=== PATIENT | male | born 1940 | race Caucasian/White ===

== ENCOUNTER 2018-02-03 08:49 | Day surgery (SDC) | payer MEDICARE ==
[~2018-02-03] VITALS: Ht 175.3 cm; Wt 77.5 kg
[~2018-02-03 08:49] MED LIST: ASPI81CH PO; CALCAVITD PO; CILO50 PO; CLON.2TP TOP; CYAN1000 PO; Catapres-Tts 11 EACH TD; ERGO50000 PO; FARXIGA5 MG PO; FISH1000 PO; GEMF600 PO; GLIM2 PO; Hygroton50 MG PO; LOSA50 PO; MAGOXI400; METRIBP PO; MULVITMIND PO; POTA10T PO; ROSU10TA PO; TAMS.4ER; UBID10; VERA120ERB PO; VERA180ER PO
== END 2018-02-03 11:20 | disposition home or self-care (01) ==
LOC: ORSCSDS 08:49
PROVIDERS: Internal Medicine Gastroenterology
PROC: 0DBN8ZX Excision of Sigmoid Colon, Via Natural or Artificial Opening Endoscopic, Diagnostic (ICD-10-PCS; principal; 2018-02-03 10:45)
PROC: 0DBM8ZX Excision of Descending Colon, Via Natural or Artificial Opening Endoscopic, Diagnostic (ICD-10-PCS; principal; 2018-02-03 10:45)
DX: R19.7 Diarrhea, unspecified (principal); D12.4 Benign neoplasm of descending colon; D12.5 Benign neoplasm of sigmoid colon; K57.30 Diverticulosis of large intestine without perforation or abscess without bleeding; I10 Essential (primary) hypertension; E11.9 Type 2 diabetes mellitus without complications; B19.20 Unspecified viral hepatitis C without hepatic coma; E78.5 Hyperlipidemia, unspecified; Z86.73 Personal history of transient ischemic attack (TIA), and cerebral infarction without residual deficits; Z79.899 Other long term (current) drug therapy
CPT/HCPCS: 82947; 88305; J7120

== ENCOUNTER 2019-06-10 15:55 | Emergency (ER) | payer MEDICARE ==
[~2019-06-10] VITALS: Ht 175.3 cm; Wt 77.1 kg
== END 2019-06-10 17:20 | disposition home or self-care (01) ==
LOC: ER 15:55
DX: T83.091A Other mechanical complication of indwelling urethral catheter, initial encounter (principal); I10 Essential (primary) hypertension; E78.5 Hyperlipidemia, unspecified; E11.9 Type 2 diabetes mellitus without complications; Z88.1 Allergy status to other antibiotic agents; Z91.011 Allergy to milk products; Z88.8 Allergy status to other drugs, medicaments and biological substances; Z79.899 Other long term (current) drug therapy; Z79.84 Long term (current) use of oral hypoglycemic drugs
CPT/HCPCS: 51700; 51798; 99283-25

== ENCOUNTER → 2019-07-19 | Outpatient (CLI) | payer MEDICARE ==
[2019-07-19 10:24] LABS: Source, Urine Clean Catch
[2019-07-19 13:22] LABS: Bilirubin, Urine Neg (Neg); Blood, Urine 5+ (Neg); Glucose Qualitative, Urine 2+ (Neg); Ketones, Urine Neg (Neg); Leukocyte Esterase, Urine 3+ (Neg); Nitrite, Urine Pos (Neg); Protein, Urine 4+ (Neg); Specific Gravity, Urine 1.025 (1.003-1.022); Urobilinogen, Urine NORM (Normal)
[2019-07-19 13:32] LABS: Appearance, Urine Cloudy (Clear); Bacteria Mod /hpf; Color, Urine Yellow (P-Yellow); Red Blood Cells, Urine TNTC /hpf (0-2); Squamous Epithelial Cells Not Seen /hpf (Few); White Blood Cells, Urine TNTC /hpf (0-5)
[2019-07-19 13:33] LABS: Mucus Light (0-Heavy)
== END | disposition home or self-care (01) ==
LOC: LAB SHORT 10:20 → LAB 10:20
PROVIDERS: Urology
DX: N39.0 Urinary tract infection, site not specified (principal)
CPT/HCPCS: 81001

== ENCOUNTER → 2020-07-02 | Outpatient (CLI) | payer MEDICARE ==
[2020-07-02 20:19] LABS: Creatinine, Urine Random 98.2 mg/dL (27.00-270.00)
[2020-07-02 20:22] LABS: Microalb/Creat Ratio UR, Rand 22.709 mg/g (0.000-30.000); Microalbumin, Random Urine 22.3 mg/L (0.000-20.000)
== END | disposition home or self-care (01) ==
LOC: LAB 12:50 → LAB SHORT 12:50
PROVIDERS: Family Medicine
DX: E11.59 Type 2 diabetes mellitus with other circulatory complications (principal); D64.9 Anemia, unspecified
CPT/HCPCS: 82043; 82570

== ENCOUNTER → 2020-10-25 | Outpatient (CLI) | payer MEDICARE ==
[~2020-10-25] MED LIST changes: +AMIL5 PO; +AMLO5 PO; +CILO100 PO; +Vitamin D2000 UNIT PO
== END ==
LOC: PLD 15:49 → LAB SHORT 15:49
DX: D48.5 Neoplasm of uncertain behavior of skin (principal)
CPT/HCPCS: 88341; 88342

== ENCOUNTER → 2020-11-30 | Outpatient (CLI) | payer MEDICARE ==
[2020-11-30 14:35] LABS: Albumin, Blood 3.4 g/dL (3.4-5.0); Anion Gap 8 mmol/L (6-16); Blood Urea Nitrogen 36 mg/dL (8-24); Bun/Creatinine Ratio 18.6 (12.0-20.0); CO2, Blood 17 mmol/L (21-32); Calcium, Blood 8.7 mg/dL (8.5-10.1); Chloride, Blood 117 mmol/L (98-108); Creatinine, Blood 1.94 mg/dL (0.60-1.20); Glomerular Filtration Rate 36 (60-); Glucose, Blood 157 mg/dL (70-99); Magnesium, Blood 1.8 mg/dL (1.6-2.4); Phosphorus, Blood 3.6 mg/dL (2.5-4.9); Potassium, Blood 4.6 mmol/L (3.5-5.5); Sodium, Blood 142 mmol/L (136-145)
== END | disposition home or self-care (01) ==
LOC: LAB 10:26 → LAB SHORT 10:26
PROVIDERS: Internal Medicine
DX: N18.32 Chronic kidney disease, stage 3b (principal)
CPT/HCPCS: 36415; 80069; 83735

== ENCOUNTER 2021-03-25 07:09 | Day surgery (SDC) | payer MEDICARE ==
[~2021-03-25] VITALS: Ht 175.3 cm; Wt 68.0 kg
[~2021-03-25 07:09] MED LIST changes: +Actos15 MG PO; +CARV3.125 PO; +MAGNESIUM OXID500 MG PO
[2021-03-25] MEDS ORDERED: XARELTO20 MG (13:16)
[2021-03-25] MEDS ORDERED: CLOP75 (13:16)
--- NOTE | 2021-03-25 15:13 | NUR ---
PT UP TO RESTROOM, AMBULATES WITH SLOW GAIT, USING FWW FOR SUPPORT. RIGHT GROIN SITE APPEARS TO BE SOFT NON TENDER WITH NO ACTIVE BLEEDING, OOZING, OR PAIN NOTED. GETS DRESSSED WITH NO NEEDED ASSISTANCE.
--- NOTE | 2021-03-25 16:03 | NUR ---
PT VERBALIZED UNDERSTANDING OF D/C INSTRUCTIONS. PAPERWORK PROVIDED IN FOLDER. IV REMOVED WITH CATH INTACT, PRESSURE DRESSING APPLIED. RIGHT GROIN SITE SOFT NON TENDER WITH NO ACTIVE BLEEDING, OOZING, OR PAIN NOTED. ENCOURAGED TO GET TO [facility] FOR NEW PRESCRIPTIONS AND FOLLOW UP WITH PROVIDER SCHEDULED. VERBALIZED UNDERSTANGING. TRANSPORTATION ARRANGED THROUGH [facility]. TAKEN OUT BY W/Grace SALINAS.
== END 2021-03-25 16:00 | disposition home or self-care (01) ==
LOC: MHTC 07:09 → EDSTATUS 07:12 → MHTC 07:29
DX: E11.51 Type 2 diabetes mellitus with diabetic peripheral angiopathy without gangrene (principal); I70.222 Atherosclerosis of native arteries of extremities with rest pain, left leg; I12.9 Hypertensive chronic kidney disease with stage 1 through stage 4 chronic kidney disease, or unspecified chronic kidney disease; E11.22 Type 2 diabetes mellitus with diabetic chronic kidney disease; N18.9 Chronic kidney disease, unspecified; I25.10 Atherosclerotic heart disease of native coronary artery without angina pectoris; E78.5 Hyperlipidemia, unspecified; Z87.891 Personal history of nicotine dependence; Z95.828 Presence of other vascular implants and grafts; Z88.8 Allergy status to other drugs, medicaments and biological substances; Z91.011 Allergy to milk products; Z79.84 Long term (current) use of oral hypoglycemic drugs
CPT/HCPCS: 76937; 85347; 99152; 99153; C1724; C1725; C1760; C1769; C1887; C1894; J1644; J2250; J3010; J7030; Q9967

== ENCOUNTER 2021-04-20 12:59 | Inpatient (IN) | payer MEDICARE ==
[~2021-04-20] VITALS: Ht 175.3 cm; Wt 71.1 kg
[~2021-04-20 12:59] MED LIST changes: +CLOP75; +XARELTO20 MG
[2021-04-20 16:12] LABS: BASOPHILS ABSOLUTE AUTO 0.04 K/mm3 (0.00-0.23); BASOPHILS PERCENT AUTO 1 % (0-2); EOSINOPHILS ABSOLUTE AUTO 0.05 K/mm3 (0.00-0.68); EOSINOPHILS PERCENT AUTO 1 % (0-6); Hematocrit 31.7 % (37.0-53.0); Hemoglobin 10.1 g/dL (13.5-17.5); IMMATURE GRAN ABSOLUTE AUTO 0.19 K/mm3 (0.00-0.10); IMMATURE GRAN PERCENT AUTO 3 % (0-1); LYMPHOCYTES PERCENT AUTO 23 % (21-46); MONOCYTES PERCENT AUTO 11 % (4-13); Mean Corpuscular HGB 30.2 pg (26.0-34.0); Mean Corpuscular HGB Conc 31.9 g/dL (31.5-36.5); Mean Corpuscular Volume 95 fL (80-100); Mean Platelet Volume 10.4 fL (9.1-12.4); NEUTROPHILS PERCENT AUTO 62 % (41-73); Platelet Count 229 K/mm3 (150-400); RDW Coefficient Variation 14.9 % (11.7-14.2); RDW Standard Deviation 50.6 fL (35.1-46.3); Red Blood Cell Count 3.34 M/mm3 (4.30-5.90); White Blood Cell Count 7.28 K/mm3 (4.00-11.30)
[2021-04-20 16:29] LABS: Albumin, Blood 2.6 g/dL (3.4-5.0); Albumin/Globulin Ratio 0.6 (0.8-1.8); Bilirubin, Total 0.5 mg/dL (0.1-1.0); Bun/Creatinine Ratio 12.6 (12.0-20.0); Calcium, Blood 8.6 mg/dL (8.5-10.1); Creatinine, Blood 1.9 mg/dL (0.60-1.20); Globulin, Blood 4.1 g/dL (2.2-4.0); Potassium, Blood 3.2 mmol/L (3.5-5.5); Total Protein, Blood 6.7 g/dL (6.4-8.2)
[2021-04-20 16:49] LABS: International Normalized Ratio 1.1; Prothrombin Time Results 11.8 Sec (9.7-11.5)
[2021-04-20] MEDS ORDERED: AMIL5 PO (17:29)
[2021-04-20] MEDS ORDERED: AMLO10 PO (17:30)
[2021-04-20] MEDS ORDERED: ASPI81CH PO (17:31)
[2021-04-20] MEDS ORDERED: CARVEDILOL3.125 MG PO (17:32)
[2021-04-20] MEDS ORDERED: CHOLESTYRAMI239.4 G1 PO (17:33)
[2021-04-20] MEDS ORDERED: CILOSTAZOL PO (17:34)
[2021-04-20] MEDS ORDERED: Amaryl2 MG PO (17:35)
[2021-04-20] MEDS ORDERED: LOSARTAN POTAS100 M1 PO (17:37)
[2021-04-20] MEDS ORDERED: MAGNESIUM OXID400 M1 PO (17:38)
[2021-04-20] MEDS ORDERED: ACTOS15 MG PO (17:39)
[2021-04-20] MEDS ORDERED: KLOR-CON 1010 ME1 PO (17:40)
[2021-04-20] MEDS ORDERED: LYRICA200 M1 PO (17:41)
[2021-04-20] MEDS ORDERED: ROSU5 PO (17:42)
[2021-04-20] MEDS ORDERED: FLOMAX0.4 MG PO (17:43)
[2021-04-21 01:05] LABS: Bun/Creatinine Ratio 12.6 (12.0-20.0); Calcium, Blood 7.9 mg/dL (8.5-10.1); Creatinine, Blood 1.74 mg/dL (0.60-1.20); Potassium, Blood 3.4 mmol/L (3.5-5.5)
--- NOTE | 2021-04-21 05:12 | NUR ---
PATIENT SUMMARY PATIENT IS ALERT AND ORIENTED X4. VS STABLE FOR PATIENT ON RA. NO COMPLAINTS OF SHORTNESS OF BREATH OR CHEST PAIN. DECREASED HEPARIN MY SHIFT ACCORDING TO PHARMACY. NO SWELLING NOTED MY SHIFT. LEFT FOOT REAMINS DISCOLORED WITH 1+ PULSE. MEDICATIONS GIVEN ORDERED AND CARES COMPLETED ORDRED ACCORDING TO NURSING JUDGEMENT. ALL UNFINNISHED CARES ENDORSED TO ONCOMING NURSE.
--- NOTE | 2021-04-21 10:00 | NUR ---
HEAD DRESSING CHANGED. SHUR CLENS TO AREA. OIL EMULSION THEN NONADHERING. PICTURE TAKEN WITH PATIENT CONSENT. PATIENT STS HAS CHEM ONCE A WEEK AND HAD RADIATION. STS IT LOOKS BETTER. LEFT ARM SKIN DARKENED WITH PATIENT STS AREA NUMB POST CHEM LEAKAGE.
--- NOTE | 2021-04-21 14:05 | NUR ---
PATIENT AWARE INTERVENTIONALIST, , WILL BE DOING PROCEDURE TOMORROW. NPO AFTER MIDNITE EXCEPT MEDS. UNSURE WHAT TIME.
--- NOTE | 2021-04-21 18:04 | NUR ---
ALERT. ORIENTED. COOPERATIVE. PLEASANT. UNLABORED RESPIRATIONS.FORGETFUL.DRESSING TO LEFT SIDE OF HEAD CHANGED. HEPARIN INFUSING WITH NO CHANGES IN RATE THIS SHIFT. TELE ON. HAD 2 EPISODES OF HOUSE COLORED DIARRHEA WITH PATIENT STAING HE "HAS HAD FOR YEARS DUE TO PANCREATIC PROBLEMS". RT GROIN DRESSING LEFT IN PLACE. NO OBVIOUS BLEEDING OR SWEELING. BRUISING TO AREA. WCTM
[2021-04-22 05:06] LABS: Hematocrit 33.1 % (37.0-53.0); Hemoglobin 10.8 g/dL (13.5-17.5); Mean Corpuscular HGB 30.4 pg (26.0-34.0); Mean Corpuscular HGB Conc 32.6 g/dL (31.5-36.5); Mean Corpuscular Volume 93 fL (80-100); Mean Platelet Volume 10.5 fL (9.1-12.4); Platelet Count 233 K/mm3 (150-400); RDW Coefficient Variation 15.3 % (11.7-14.2); RDW Standard Deviation 51.7 fL (35.1-46.3); Red Blood Cell Count 3.55 M/mm3 (4.30-5.90); White Blood Cell Count 8.25 K/mm3 (4.00-11.30)
--- NOTE | 2021-04-22 06:04 | NUR ---
CAPITAL PROJECT ENGINEER SUMMARY ADMITTED FOR ISCHEMIC PAIN OF THE LEFT FOOT. PT IS FULL CODE. PT IS PLANNED TO HAVE STENT PLACED IN THE AM. NPO AFTER MIDNIGHT. PT WITH SOME EPISODES OF DIARRHEA. DRESSING TO HEAD PARTIALLY REMOVED AND AREA CLEANED WITHOUT REMOVAL OF PETROLEUM DRESSING - WET TO DRY PLACED OVER DRESSING. PT RESTING AT THIS TIME. NO OTHER CONCERNS THIS SHIFT.
[2021-04-22 06:22] LABS: Bun/Creatinine Ratio 12.3 (12.0-20.0); Calcium, Blood 8.6 mg/dL (8.5-10.1); Creatinine, Blood 1.79 mg/dL (0.60-1.20); Potassium, Blood 3.7 mmol/L (3.5-5.5)
[2021-04-22 11:44] LABS: SARS-Cov-2 (COVID-19) PCR, MMC NEGATIVE (NEGATIVE)
--- NOTE | 2021-04-22 11:58 | NUR ---
TO [facility]. [id number]
--- NOTE | 2021-04-22 14:46 | NUR ---
JAY CALLED FROM [facility]. RESTARTING HEPARIN. RECOMMENDED HE CONTACT [facility] FOR CURRENT INST. AND RATES. CALLED REPORT TO ALMA JNI. PT GOING TO RM 233
--- NOTE | 2021-04-22 18:00 | NUR ---
END OF SHIFT SUMMARY: PATIENT IS A/O X3 FOREGETFUL AT TIMES. HEPARIN RUNNING, VERY WEAK PULSE OF THE LEFT FOOT, SOME DISCOLORATION THAT EXTENDS TO THE MID LEFT CALF. PATIENT WILL BE NPO AFTER BREAKFAST. DR. DESHPANDE TO REACCESS IN THE MORNING. AC HS DENIES CHEST PAIN, PVC'S AND PAC'S PER TELEMETRY.
[2021-04-23 04:30] LABS: Bun/Creatinine Ratio 14.1 (12.0-20.0); Calcium, Blood 8.5 mg/dL (8.5-10.1); Creatinine, Blood 2.13 mg/dL (0.60-1.20); Potassium, Blood 4.2 mmol/L (3.5-5.5)
--- NOTE | 2021-04-23 05:58 | NUR ---
SHIFT SUMMARY PATIENT IS RESTING COMFORTABLY IN BED. BED IS IN LOW POSTION. CALL LIGHT IS IN REACH. VITALS HAVE BEEN STABLE ALL NIGHT. NO ACTUE CHANGES OVER NIGHT. THE PATIENT IS STILL ON THE HEPARIN DRIP WITH NO CHANGES TO THE RATE 16 UNITS/KG/HR AT 20.2ML/HR. LLE PULSES REASSESSED AND MARKED. NO COMPLAINTS OF PAIN. WIIL CONTINUE TO MONITOR. REPORT WILL BE GIVEN TO DAY SHIFT RN.
--- NOTE | 2021-04-23 08:43 | NUR ---
ASSUMPTION OF CARE Pt is awake and oriented x 4. He is a little groggy as he just woke up. AM care has been done and his dentures were brushed and put back in. Heparin is running as ordered. is at the bedside and asked that his morning BP meds be held due to his hypotension this morning. Pt is eating breakfast and then he will be NPO for his revas this afternoon with DR Bunch. Pt has his call light in reach and able to make his needs known.
--- NOTE | 2021-04-23 13:08 | NUR ---
SUMMARY OF CARE Pt is a/o x 3 today but has been forgetful and fatigued since after breakfast. He has been NPO since after breakfast becuase Dr Bunch had planned another revas but according to the PA his renal function is not well enough for that today. Home meds were reviewed with the DR this morning and she made changes reflected on the EMAR. Pt's sister was updated this morning. Pt was able to transfer to the [facility] for toileting. He is able to make his needs known and calls for help when needed.
--- NOTE | 2021-04-23 14:07 | NUR ---
Met pt lying in bed resting, pt. is fineoffered prayers and spiritual support
--- NOTE | 2021-04-23 15:00 | NUR ---
ASSUMED CARE PT ALERT AND ORIENTED. PT IS LETHARGIC THIS AFTERNOON, BUT AWAKENS AND ANSWERS QUESTIONS WHEN RN IN THE ROOM. O2 SATS REMAIN ABOVE 90% ON RA. BP STABLE. HR HAS BEEN NSR WITH PVC 70'S. PT DENIES ANY PAIN. HEP GTT INFUSING PER ORDERS AT A RATE OF 16U/KG/HR. PT'S SISTER CALLED AND UPDATED REQUESTED. WILL CONTINUE TO MONITOR CLOSELY.
--- NOTE | 2021-04-23 17:10 | NUR ---
UPDATE PT AWAKENS AND SLURRED SPEECH NOTED. PT PROVIDED ORAL CARE TO SEE IF THAT AND DENTURES TO SEE IF SPEECH IMPROVES. SPEECH IS STILL SLURRED AND PT STATES HE IS HAVING DIFFICULTY "GETTING MY WORDS OUT". PUPILS EQUAL AND REACTIVE. HIGH PRESSURE CLEANER EQUAL AND STRONG. NO UNILATERAL DEFICITS NOTED. DR. HERRERA CALLED AND NOTIFED. PLAN FOR A STAT HEAD CT. WILL CONTINUE TO MONITOR CLOSELY
--- NOTE | 2021-04-23 23:00 | NUR ---
THE PATIENT'S PEDAL PULSES ARE NOW ABSENT WITH A DOPPLER AND UNABLE TO PALPATE. WAS ABLE TO FIND THE TIBIAL PULSE WITH JOSE ROSARIO USING THE DOPPLER UNABLE TO PALPATE THE PULSE. PATIENT IS CURRENTLY ON HEPARIN 16 UNITS/KG/HR 20.2 ML/HR. PLANNED REVASCULARIZATION TODAY IF RENAL FUNCTION HAS IMPROVED. WILL CONTINUE TO MONITOR.
[2021-04-24 05:06] LABS: Hematocrit 28.2 % (37.0-53.0); Hemoglobin 9.2 g/dL (13.5-17.5); Mean Platelet Volume 10.7 fL (9.1-12.4); Platelet Count 236 K/mm3 (150-400)
--- NOTE | 2021-04-24 05:51 | NUR ---
SHIFT SUMMARY PATIENT IS RESTING COMFORTABLY IN BED. BED IS IN LOW POSITION. CALL LIGHT IS IN REACH. VITALS HAVE BEEN STABLE. PATIENT IS STILL CONCERNED ABOUT THE CHANGES IN HIS SPEECH. PATIENT WAS ADVICED TO BE RELAX WHEN TALKING AND HAS FELT BETTER WHEN COMMUNICATING WITH RN. L TIBIAL PULSE IS +1 WITH THE DOPPLER AND MARKED, RN WAS UNABLE TO PALPATE THE PULSES. THE PEDAL PULSE IS ABSENT UPON PALPATION AND DOPPLER WILL INFORM ONCOMING RN OF THE CHANGES. PATIENT IS CURRENTLY ON HEPARIN AT 16 UNIT/KG/HR (20.2 ML/HR). THEY PLAN ON GOING IN TO DO THE REVASCULARIZATION SURGERY TODAY IF HIS RENAL FUNCTION IS GOOD. NO LAB TO ASSESS RENAL FUNCTION DR DAVIS WAS INFOMRED. NEW ORDERS WERE PUT IN FOR A CMP. WILL CONTINUE TO MONITOR. REPORT WILL BE GIVEN TO ONCOMING RN.
--- NOTE | 2021-04-24 06:37 | NUR ---
NO ORDERS WERE PUT IN TO CHECK THE RENAL FUNCTION OF THE PATIENT IN ANTICIPATION FOR REVASCULARIZATION SURGERY TO DAY. DR DAVIS WAS INFOMRED AND NEW ORDERS WERE PUT IN FOR CMP.
--- NOTE | 2021-04-24 07:15 | NUR ---
CARE ASSUMPTION PATIENT A/0X4. VSS. TELE. PATIENT STATES SPEECH CHANGED YESTERDAY. IT IS SLOW AND SLURRED AT TIMES. PATIENT REPORTS A DECREASE IN STRENGTH AND MOBLITYIN RIGHT HAND. PATIENT HAD HEAD CT YESTERDAY AND IT WAS NEGATIVE. CALL LIGHT WITHIN REACH WILL CONTINUE TO MONITOR AND PROVIDE CARE.
[2021-04-24 07:22] LABS: Albumin, Blood 1.9 g/dL (3.4-5.0); Albumin/Globulin Ratio 0.5 (0.8-1.8); Bilirubin, Total 0.4 mg/dL (0.1-1.0); Bun/Creatinine Ratio 13.4 (12.0-20.0); Creatinine, Blood 2.61 mg/dL (0.60-1.20); Potassium, Blood 4.2 mmol/L (3.5-5.5); Total Protein, Blood 5.9 g/dL (6.4-8.2)
--- NOTE | 2021-04-24 09:26 | NUR ---
UPDATE MD HERRERA INTO SEE PATIENT AND NOFITED OF PATIENT NEW NEURO CHANGES; SLOW SLURRED SPEECH, RIGHT ARM WEAKNESS. PATIENT DOES NOT HAVE A FACIAL DROOP. MD BRITTON A MRI. WILL CONTINUE TO MONITOR AND PROVIDE CARE.
--- NOTE | 2021-04-24 10:50 | NUR ---
UPDATE UPON REASSESSMENT AFTER PATIENT MRI. PATIENT HAD A RIGHT SIDED FACIAL DROOP WHEN SMILING. WILL CONTINUE TO MONITOR AND AWAIT RESULTS FOR MRI AND NOTIFY .
--- NOTE | 2021-04-24 13:01 | NUR ---
SPOKE TO MD SPOKE TO MD HERRERA ABOUT PATIENT MRI RESULTS SHOW THAT PATIENT HAD AN ISCHEMIC STROKE OF THE LEFT ROSINA . Q4 NEURO CHECKS IN PLACE. KEEP BLOOD GLUCOSE LEVELS BETWEEN 140-180, BP LESS THEN 220/120, HEAD OF BED FLAT, AN TONGUE AND GROOVE MACHINE FEEDER EVAL, AND NPO. WILL CONTINUE TO MONITOR AND PROVIDE CARE. PATIENT IS IN LOWEST POSITION WITH HEAD OF BED FLAT. CALL LIGHT WITHIN REACH.
--- NOTE | 2021-04-24 14:25 | NUR ---
PT TRANSFERED TO 356 VIA WHEEL CHAIR, ALL BELONGINGS SENT WITH PT.
--- NOTE | 2021-04-24 17:07 | NUR ---
SHIFT SUMMARY PATIENT A/OX4. VSS. TELE SR @66. SPO2 >90% ON RA. PATIENT HAS REDDNESS TO HIS BOTTOM/COCCYX MEPILEX IS IN PLACE. PATIENT HAS A RIGHT FEMORAL SITE FROM 04/20 THAT HAS OLD SCANT BLOOD, NO HEMATOMA. SPEECH EVAL DONE AND PATIENT CAN HAVE SOFT BITE SIZED REG DIET. PATIENT HAS STRONG PERIPHERAL PULSES. PATIENT HAS PULSE FOUND BY DOOPLER ON LEFT TIBAL, AND IT IS WEAK. WEAK PEDIS PULSE ON RIGHT FOOT. COOL EXTREMITIES TO TOUCH. PATIENT HAS RIGHT SIDED WEAKNESS AND RIGHT FACIAL DROOP. PATIENT REPORTS NO CHEST PAIN, PAIN, OR SOB. PLAN IS TO MAINTAIN STABLE VSS, NOTIFY PROVIDED IF BP IS ABOVE 220/120, OR SBP DROPS BELOW 120. CALL LIGHT IS WITHIN REACH AND BED IN LOWEST POSITION. WILL CONTINUE TO MONITOR AND PROVIDE CARE UNTIL HAND OFF WITH NEXT SHIFT.
[2021-04-25 06:32] LABS: BASOPHILS ABSOLUTE AUTO 0.03 K/mm3 (0.00-0.23); BASOPHILS PERCENT AUTO 0 % (0-2); EOSINOPHILS ABSOLUTE AUTO 0.14 K/mm3 (0.00-0.68); EOSINOPHILS PERCENT AUTO 1 % (0-6); Hematocrit 32.3 % (37.0-53.0); Hemoglobin 10.2 g/dL (13.5-17.5); IMMATURE GRAN ABSOLUTE AUTO 0.24 K/mm3 (0.00-0.10); IMMATURE GRAN PERCENT AUTO 2 % (0-1); LYMPHOCYTES ABSOLUTE AUTO 1.14 K/mm3 (0.84-5.20); LYMPHOCYTES PERCENT AUTO 12 % (21-46); MONOCYTES ABSOLUTE AUTO 1.01 K/mm3 (0.16-1.47); MONOCYTES PERCENT AUTO 10 % (4-13); Mean Corpuscular HGB 30.5 pg (26.0-34.0); Mean Corpuscular HGB Conc 31.6 g/dL (31.5-36.5); Mean Corpuscular Volume 97 fL (80-100); Mean Platelet Volume 10.8 fL (9.1-12.4); NEUTROPHILS ABSOLUTE AUTO 7.37 K/mm3 (1.96-9.15); NEUTROPHILS PERCENT AUTO 74 % (41-73); Platelet Count 210 K/mm3 (150-400); RDW Coefficient Variation 15.8 % (11.7-14.2); Red Blood Cell Count 3.34 M/mm3 (4.30-5.90); White Blood Cell Count 9.93 K/mm3 (4.00-11.30)
--- NOTE | 2021-04-25 06:45 | NUR ---
SHIFT SUMMARY NO ACUTE CHANGES THIS SHIFT. PT A&OX4. SLURRED SPEECH W/ R SIDE UPPER DEFICITS AND R FACIAL DROOP. SP02>94% ON RA. TELEMETRY READS NSR W/ PVCS, HR 70'S. VSS. PT INCONTINENT, CHANGED X3 THIS SHIFT. ATTENDS C/D/I. HEPARIN INFUSING PER EMAR. PT WENT TO CT THIS AM. CALL LIGHT IN REACH. WILL GIVE REPORT TO ONCOMING NURSE.
[2021-04-25 06:54] LABS: Albumin/Globulin Ratio 0.5 (0.8-1.8); Bilirubin, Total 0.4 mg/dL (0.1-1.0); Calcium, Blood 9.4 mg/dL (8.5-10.1); Creatinine, Blood 2.86 mg/dL (0.60-1.20); Globulin, Blood 4.4 g/dL (2.2-4.0); Potassium, Blood 4.5 mmol/L (3.5-5.5); Total Protein, Blood 6.4 g/dL (6.4-8.2)
--- NOTE | 2021-04-25 08:48 | NUR ---
CARE ASSUMPTION PATIENT A/O X3. PATIENT WAS MIDLY CONFUSED AND ASKED WHAT HAPPENED. THIS RN EXPLAINED WHAT WAS GOING ON AND THE GAME PLAN. VSS. SPO2 >90% ON RA. TELE SR. PATIENT REPORTS NO CHEST PAIN, PAIN, OR SOB. RIGHT FACIAL DROOP. RIGHT SIDED WEAKNESS. NEURO WAS INTACT. CALL LIGHT WITHIN REACH. PATIENT EATING BREAKFAST. WILL CONTINUE TO MONITOR AND PROVIDE CARE.
--- NOTE | 2021-04-25 17:32 | NUR ---
SHIFT SUMMARY PATIENT A/OX4. VSS. TELE SR @75. RA SPO2 >90%. PATIENT DENIES CHEST PAIN, PAIN, OR SOB. PATIENT WORKED WITH OCCUPATIONAL THERAPY AND PHYSICAL THERAPY TODAY. PATIENT WAS A 2 PERSON ASSIST FOR TRANSFER FROM BED TO CHAIR. PATIENT SAT IN CHAIR FOR ABOUT 2 HOURS TODAY AND THEN RETURNED TO BED. NO ACUTE CHANGES. CALL LIGHT WITHIN REACH AND BED IN LOWEST POSITION. WILL CONTINUE TO MONITOR AND PROVIDE CARE UNTIL HAND OFF WITH NEXT SHIFT.
--- NOTE | 2021-04-25 18:11 | NUR ---
04/25/21: Per chart review, pt. not yet appropriate for discharge. Reviewed PT/OT eval with recommendation for SNF. Pt. lives in multi-level home with stairs that will likely be a challenge at this point. Prior to admission was using a walker to ambulate long distances. Anticipate needs at time of discharge to include: SNF PT/OT, No prior auth needed (Medicare), long-term care planning (social media content manager at facility to assist as well), hospital F/U within 5-7 days post discharge. 04/24/21: Per chart review with lavonne Cabral pt. had CVA. He is not appropriate for discharge at this time. Anticipate needs at time of discharge to include: PT/OT eval, SNF vs. C, potentially caregiver support, long-term care planning depending on progress.
[2021-04-26 04:24] LABS: BASOPHILS ABSOLUTE AUTO 0.02 K/mm3 (0.00-0.23); BASOPHILS PERCENT AUTO 0 % (0-2); EOSINOPHILS ABSOLUTE AUTO 0.14 K/mm3 (0.00-0.68); EOSINOPHILS PERCENT AUTO 2 % (0-6); Hematocrit 33.3 % (37.0-53.0); Hemoglobin 10.7 g/dL (13.5-17.5); IMMATURE GRAN ABSOLUTE AUTO 0.24 K/mm3 (0.00-0.10); IMMATURE GRAN PERCENT AUTO 3 % (0-1); LYMPHOCYTES ABSOLUTE AUTO 1.32 K/mm3 (0.84-5.20); LYMPHOCYTES PERCENT AUTO 14 % (21-46); MONOCYTES PERCENT AUTO 11 % (4-13); Mean Corpuscular HGB 30.8 pg (26.0-34.0); Mean Corpuscular HGB Conc 32.1 g/dL (31.5-36.5); Mean Corpuscular Volume 96 fL (80-100); NEUTROPHILS ABSOLUTE AUTO 6.48 K/mm3 (1.96-9.15); NEUTROPHILS PERCENT AUTO 71 % (41-73); Platelet Count 223 K/mm3 (150-400); RDW Coefficient Variation 15.6 % (11.7-14.2); RDW Standard Deviation 53.8 fL (35.1-46.3); Red Blood Cell Count 3.47 M/mm3 (4.30-5.90)
[2021-04-26 05:12] LABS: Albumin, Blood 2.2 g/dL (3.4-5.0); Albumin/Globulin Ratio 0.5 (0.8-1.8); Bilirubin, Total 0.5 mg/dL (0.1-1.0); Bun/Creatinine Ratio 16.4 (12.0-20.0); Calcium, Blood 9.4 mg/dL (8.5-10.1); Creatinine, Blood 2.93 mg/dL (0.60-1.20); Globulin, Blood 4.4 g/dL (2.2-4.0); Potassium, Blood 4.5 mmol/L (3.5-5.5); Total Protein, Blood 6.6 g/dL (6.4-8.2)
--- NOTE | 2021-04-26 05:32 | NUR ---
SHIFT SUMMARY PT IS A+OX4. COOPERATIVE TO CARE. MAINTAINING O2 SATS OVER 97% ON RA. VSS. HR NSR 70'S. CURRENTLY ON SOFT DIET AND ACHS. HEPARIN GTT INFUSING IN RIGHT A/C AT 18UNITS/HR. MEPILEX IN PLACE ON BOTTOM, BANDAGE ON FEMORAL SITE ON RIGHT SIDE, AND LEFT FOREHEAD BANDAGE FOR ANGIOSARCOMA. PT REMAINS INCONTINENT OF URINE. STATES HE FELT HTIGH PAIN 4/10, RELIEVED PER EMAR. LEFT FOOT COOL TO TOUCH. UNABLE TO PALPATE PULSES IN LLE OR TO HEAR PULSES WIT DOPPLER. PT LEFT IN BED RESTING WITH CALL ALARM AT SIDE. WILL CONTINUE TO MONITOR UNTIL REPORT GIVEN
[2021-04-26 10:10] LABS: Appearance, Urine Clear (Clear); Bilirubin, Urine Neg (Neg); Blood, Urine Neg (Neg); Color, Urine Yellow (P-Yellow); Glucose Qualitative, Urine Neg (Neg); Ketones, Urine Neg (Neg); Leukocyte Esterase, Urine Neg (Neg); Nitrite, Urine Neg (Neg); Protein, Urine Neg (Neg); Specific Gravity, Urine 1.015 (1.003-1.022); Urobilinogen, Urine NORM (Normal)
--- NOTE | 2021-04-26 13:58 | NUR ---
Update 04/26/21: Per chart review with Dr. Fleming this am, pt. not yet appropriate for discharge. Decreased urine output. Unable to successfully insert rosado cath. Straight cath inserted with 2100ml of urine drained. Pt. not likely to D/C over the weekend. Anticipating need for SNF and possible D/C as soon as Thursday depended upon progress over weekend, notified [facility] of pending review for acceptance. Antcipating needs at time of discharge to include: SNF PT/OT, No prior auth needed (Medicare), long-term care planning (social media designer at facility to assist as well), hospital F/U within 5-7 days post discharge.
--- NOTE | 2021-04-26 17:22 | NUR ---
PT REPORTS SOME BACK PAIN AND LEG PAIN THAT IS RESOLVED WITH REPOSITIONING T/O THE DAY. PT IS ALERT, SOME CONFUSION NOTED, ALSO WITH APHASIA. RT SIDED WEAKNESS PRESENT BUT IS ABLE TO MOVE RT SIDE WITH OCCUPATIONAL THERAPY. RT GROIN SITE IS INTACT NO DRAINAGE NOTED. THERE ARE NO ACUTE CHANGES NOTED
--- NOTE | 2021-04-26 19:01 | NUR ---
VERIFIED HEPARIN GTT WITH JOSE LUCERO.
[2021-04-27 00:02] LABS: Source, Urine Catheter
[2021-04-27 00:06] LABS: Bilirubin, Urine Neg (Neg); Blood, Urine 3+ (Neg); Glucose Qualitative, Urine Neg (Neg); Ketones, Urine Neg (Neg); Leukocyte Esterase, Urine Neg (Neg); Nitrite, Urine Neg (Neg); Protein, Urine 1+ (Neg); Urobilinogen, Urine NORM (Normal)
[2021-04-27 00:27] LABS: Appearance, Urine Clear (Clear); Color, Urine Yellow (P-Yellow)
[2021-04-27 00:29] LABS: Amorphous Mod (0-Heavy); Bacteria Not Seen /hpf; Red Blood Cells, Urine 25-50 /hpf (0-2); Squamous Epithelial Cells Rare /hpf (Few); White Blood Cells, Urine Rare /hpf (0-5)
[2021-04-27 05:39] LABS: BASOPHILS ABSOLUTE AUTO 0.03 K/mm3 (0.00-0.23); BASOPHILS PERCENT AUTO 0 % (0-2); EOSINOPHILS ABSOLUTE AUTO 0.14 K/mm3 (0.00-0.68); EOSINOPHILS PERCENT AUTO 2 % (0-6); Hematocrit 26.6 % (37.0-53.0); Hemoglobin 8.8 g/dL (13.5-17.5); IMMATURE GRAN ABSOLUTE AUTO 0.16 K/mm3 (0.00-0.10); IMMATURE GRAN PERCENT AUTO 2 % (0-1); LYMPHOCYTES PERCENT AUTO 17 % (21-46); MONOCYTES ABSOLUTE AUTO 0.96 K/mm3 (0.16-1.47); MONOCYTES PERCENT AUTO 13 % (4-13); Mean Corpuscular HGB 31.2 pg (26.0-34.0); Mean Corpuscular HGB Conc 33.1 g/dL (31.5-36.5); Mean Corpuscular Volume 94 fL (80-100); NEUTROPHILS ABSOLUTE AUTO 4.98 K/mm3 (1.96-9.15); NEUTROPHILS PERCENT AUTO 66 % (41-73); Platelet Count 182 K/mm3 (150-400); RDW Coefficient Variation 15.6 % (11.7-14.2); RDW Standard Deviation 53.6 fL (35.1-46.3); Red Blood Cell Count 2.82 M/mm3 (4.30-5.90); White Blood Cell Count 7.57 K/mm3 (4.00-11.30)
--- NOTE | 2021-04-27 06:26 | NUR ---
SHIFT SUMMARY PT A/OX2-3 FORGETFUL WITH DATE. AT TIMES CAN UNDERSTAND AND SOMETIMES MUMBLES/SLURRED; APHASIA. Q4H NEURO CHECKS WITH OUT ANY ACUTE CHANGES. ON TELE NSR 70'S-80'S. PT RIGH SIDE AND LOWER EXT WEAK. CAN MOVE A LITTLE R. ARM. WEAK FAN ENGINE ENGINEER. LEFT LOWER EXT. RED/PINK IN COLOR WITH SKIN PEELING. PULSES FELT IN BUE. FOR BLE DOPPLER WAS USED AND FAINT PULSES HEARD. HAS A FOAM ON BUTTOCK AREA; DARK PINK NON BLANCHABLE AREA. BRIEF ON D/I/C. NEW CARTER IN PLACE 10 FR DRAINING TO GRAVITY; YELLOW URINE OUTPUT. DID REPORT PAIN TO LLE; MED GIVEN PER EMAR/ORDERS. Q2H TURNS. SKIN WARM TO TOUCH. LLE FOOT WARM/COOL IN CERTAIN AREAS. ON HEPARIN DRIP PER ORDERS. VSS. WILL CONT. WITH PLAN OF CARE. IN FOOT AREA.
[2021-04-27 06:45] LABS: Albumin, Blood 1.8 g/dL (3.4-5.0); Albumin/Globulin Ratio 0.5 (0.8-1.8); Bilirubin, Total 0.4 mg/dL (0.1-1.0); Bun/Creatinine Ratio 17.3 (12.0-20.0); Calcium, Blood 8.9 mg/dL (8.5-10.1); Creatinine, Blood 2.77 mg/dL (0.60-1.20); Globulin, Blood 3.9 g/dL (2.2-4.0); Potassium, Blood 4.7 mmol/L (3.5-5.5); Total Protein, Blood 5.7 g/dL (6.4-8.2)
--- NOTE | 2021-04-27 18:10 | NUR ---
assumed pt care at 1715. pt is sleeping, vss, no signs of acute distress.
--- NOTE | 2021-04-27 18:42 | NUR ---
SEE NURSING ASSESSMENT FROM DAY SHIFT NURSE THIS MORNING. NO ACUTE CHANGES SINCE ASSUMING PATIENT CARE. WILL GIVEN REPORT TO ONCOMING RN.
[2021-04-28 04:01] LABS: BASOPHILS ABSOLUTE AUTO 0.02 K/mm3 (0.00-0.23); BASOPHILS PERCENT AUTO 0 % (0-2); EOSINOPHILS ABSOLUTE AUTO 0.12 K/mm3 (0.00-0.68); EOSINOPHILS PERCENT AUTO 2 % (0-6); Hematocrit 27.2 % (37.0-53.0); Hemoglobin 8.9 g/dL (13.5-17.5); IMMATURE GRAN ABSOLUTE AUTO 0.16 K/mm3 (0.00-0.10); IMMATURE GRAN PERCENT AUTO 2 % (0-1); LYMPHOCYTES ABSOLUTE AUTO 1.32 K/mm3 (0.84-5.20); LYMPHOCYTES PERCENT AUTO 17 % (21-46); MONOCYTES ABSOLUTE AUTO 1.13 K/mm3 (0.16-1.47); MONOCYTES PERCENT AUTO 14 % (4-13); Mean Corpuscular HGB 30.7 pg (26.0-34.0); Mean Corpuscular HGB Conc 32.7 g/dL (31.5-36.5); Mean Corpuscular Volume 94 fL (80-100); Mean Platelet Volume 11.3 fL (9.1-12.4); NEUTROPHILS ABSOLUTE AUTO 5.21 K/mm3 (1.96-9.15); NEUTROPHILS PERCENT AUTO 65 % (41-73); Platelet Count 170 K/mm3 (150-400); RDW Coefficient Variation 15.2 % (11.7-14.2); White Blood Cell Count 7.96 K/mm3 (4.00-11.30)
[2021-04-28 04:26] LABS: Albumin, Blood 1.8 g/dL (3.4-5.0); Albumin/Globulin Ratio 0.5 (0.8-1.8); Bilirubin, Total 0.4 mg/dL (0.1-1.0); Bun/Creatinine Ratio 18.3 (12.0-20.0); Calcium, Blood 9.1 mg/dL (8.5-10.1); Creatinine, Blood 2.35 mg/dL (0.60-1.20); Globulin, Blood 3.8 g/dL (2.2-4.0); Potassium, Blood 4.4 mmol/L (3.5-5.5); Total Protein, Blood 5.6 g/dL (6.4-8.2)
--- NOTE | 2021-04-28 07:38 | NUR ---
SHIFT SUMMARY PATIENT IS RESTING COMFORTABLY. BED IS IN LOW POSITION. CALL LIGHT IS IN REACH. PATIENT DID VERY WELL DURING THE NIGHT. NO ACUTE CHANGES. HE WAS MEDICATED ONCE FOR PAIN DURING THE SHIFT SEE EMAR. VITAL WERE STABLE DURING THE NIGHT. TURNED NEEDED. BLE PULSES WERE ASSESSED WITH A DOPPLER AND MARKED. WILL CONTINEU TO MONITOR. REPORT GIVEN TO DAY SHIFT RN.
--- NOTE | 2021-04-28 11:29 | NUR ---
UPDATE PT ALERT AND ORIENTED. VS STABLE. STATUS CHANGED TO MEDICAL WITH TELE. REPORT GIVEN TO MEDICAL FLOOR RN. HEP GTT INFUSING PER ORDERS. PT TO BE TAKEN UP BY BED,
--- NOTE | 2021-04-28 12:17 | NUR ---
PT TX TO MEDICAL FLOOR. REPORT RECEIVED FROM MILA GARCIA. ASSUMED CARE OF PT. PT ORIENTED TO FLOOR/ROOM/CALL LIGHT. BED ALARM ON AND IN LOWEST POSTION. PT EATING LUNCH AT THIS TIME. RR E/U. NO APPARENT DISTRESS.
--- NOTE | 2021-04-28 15:29 | NUR ---
DR. DESHPANDE CALLED AND REQUESTED WE DC HEPARIN AND START XARELTO [address] DESHPANDE IS OKAY TO DISCHARGE PT TO HOME AT THIS TIME. HE WANTS PT TO CALL TOMORROW IN THE MORNING TO HIS OFFICE AND MAKE APPT FOR THURSDAY. DR. JAMES TO BE NOTIFIED OF DR. MORENO POC.
--- NOTE | 2021-04-28 16:36 | NUR ---
IV HEPARIN STOPPED AND IV SALINE LOCKED. PT UPDATED WITH NEW MEDICATION REGIMENT AND UNDERSTANDS HE WILL START XARELTO TONIGHT ANTICOAGULANT.
--- NOTE | 2021-04-28 18:13 | NUR ---
SHIFT SUMMARY: PT A/O X 3 PLEASANT AND COOPERATIVE. PT ON BEDREST AT THIS TIME. PT CONTINUES TO HAVE R SIDE WEAKNESS WITH L FACIAL DROOP. PT ABLE TO ANSWER QUESTIONS APPROP. PT EATING WITH MINIMAL ASSISTANCE. BS WELL CONTROLLED. IV HEPARIN DC'D AND PLAN TO START PT ON XARELTO TONIGHT. NO OTHER ACUTE CONCERNS AT THIS TIME.
--- NOTE | 2021-04-29 06:03 | NUR ---
Pt is AAOx3, has STML. Pt has ischemic abnormalities and started on xeralto last night. LLE pulses are very weak, doppler pulses. Pt able to move LLE, denies any complaints or discomfort. Plan: Comtinue POC, strict I&O, doppler pulses, SFC when able to discharge
--- NOTE | 2021-04-29 09:47 | NUR ---
PALLIUATIVE CARE NOTIFIED OF MD REQUEST TO CONSULT PT REGARDING HOSPICE CARE VS REHAB CARE. HAD TO LEAVE A DETAILED MESSAGE. AWAITING RETURN CALL.
--- NOTE | 2021-04-29 19:26 | NUR ---
SHIFT SUMMARY: PT A/O X 2. PT HAD PT/OT TODAY AND PLAN IS TO DISCHARGE TO SNF FOR REHAB. PT HAD NO ACUTE EVENTS T/OUT THE DAY. PT CONTINUES TO HAVE COLD LEFT FOOT. TOLERATING MEDICATIONS AND MEAL INTAKE WELL.
--- NOTE | 2021-04-30 05:49 | NUR ---
Pt AAOx2, has STML and forgets where he is. LLE has very weak pulses, this nurse able to palpate, also can be heard on doppler. Pts dressing changed on his LLE as well as his left forehead. Pt tolerate the dsg change well. Plan: discharge to snf for rehab, continue POC
[2021-04-30 08:36] LABS: Albumin, Blood 1.8 g/dL (3.4-5.0); Anion Gap 8 mmol/L (6-16); Blood Urea Nitrogen 39 mg/dL (8-24); Bun/Creatinine Ratio 19.9 (12.0-20.0); CO2, Blood 24 mmol/L (21-32); Calcium, Blood 9.2 mg/dL (8.5-10.1); Chloride, Blood 106 mmol/L (98-108); Creatinine, Blood 1.96 mg/dL (0.60-1.20); Glomerular Filtration Rate 33 (60-); Glucose, Blood 136 mg/dL (70-99); Phosphorus, Blood 3.2 mg/dL (2.5-4.9); Potassium, Blood 3.6 mmol/L (3.5-5.5); Sodium, Blood 138 mmol/L (136-145)
--- NOTE | 2021-04-30 13:25 | NUR ---
Palliative Care initial visit made after case conf with pt's JOSE Smith and ADELA. Pt required two of us to boost him up in bed after VICE PRESIDENT FOR [employer]AN[employer] had been in to clean him after BM in bed. He is extremely pale, thin & frail appearing. He is severely deconditioned. He had a minimally eaten lunch tray on his bedside Table. He stated he was finished. V[employer] removed pt's lunch tray. He kept coffee. On first sip of coffee, pt aspirated and coughed repeatedly. On second sip of coffee, much of it drained out his right side of his mouth where facial droop was noted while we were talking. Pt appears alert, oriented, clear minded and able to discuss his health care wishes/goals. We reviewed his more pressing health concerns; his PAD to LLE and need for better blood flow to avoid infection or amputation, DM, malnutrition, recent stroke and reduced kidney function. 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 He verbalizes understanding that his radiology tx for the sarcoma would have to be paused if he is admitted to a SNF and he is agreeable to that. He would like to resume rad tx with Dr Daniel when possible. He satates the sarcoma is better than it used to be because of the rad tx. He does want to pursue rehabilitation to get stronger. He would like to return home eventually but knows he is unable to do that now due to weakness and deconditioning. His closest relative/NOK per pt, also his emergency contact is his sister, Isabell Silverio, in [place]. Her number, listed in EMR is [phone]. He has other siblings also but did not name them or state where they live. Pt has lived alone in [place] prior to his admission here. We discussed the complexity of his care and heatlh status. We briefly reviewed hospice. Pt is not interested in that currently. We discussed his code status and pt requests DNR status after review of all options of code status. He thinks he has a POLST at home that says full code. We completed a new POLST with DNR and limited tx. He does not want intubation either. I asked pt to replace his old POLST with the newly completed one at home. I contacted JOSE Smith and ADELA with report of all of above. VO obtained and entered for ST eval for swallow and feeding plan for safety with PO intake and aspir precautions, DNR status. POLST will be given to EFM for signature and sent to EMR for [facility] records. Original to go to SNF with pt on discharge. Pt invited to contact & return if he had any questions about our conversation or thoughts he wanted to share re: goals of care. Pt was clearly mulling over our conversation when I left. I offered to return tomorrow and he stated he would like that. He denies having any further questions at present.
--- NOTE | 2021-04-30 16:57 | NUR ---
DNR STATUS CONFIRMED WITH PATIENT AND VERIFIED WITH CHRISTOPHER DIAZ. DNR BAND PLACED ON PATIENTS LEFT WRIST.
--- NOTE | 2021-04-30 17:02 | NUR ---
MEFIX DRESSING REMOVED FROM COCCYX AREA AND STAGE TWO PRESSURE SORE FOUND. SIZE IS 2 CM X 2 CM WITH ARANDA SLOUGH IN THE CENTER. SMALL AMOUNT OF SEROUS DRAINAGE NOTED ON DRESSING. WOUND CLEANSED WITH WOUND CLEANSER AND PATTED DRY WITH GAUZE. APPLIED CALMOSEPTINE TO WOUND AND COVERED WITH MEFIX. DRESSING CHANGE COMPLETED TO E. PT HAS SKIN BREAKDOWN TO TOP OF FOOT SCATTERED SPOTS. ALSO SKIN TEAR TO OUTER LEG. WOUND BED IS DARK RED. NO S/S OF INFECTION NOTED TO WOUNDS. NO DRAINAGE TO WOUNDS. WOUNDS CLEANSED WITH WOUND CLEANSER AND GAUZE AND PATTED DRY. XEROFORM DRESSING APPLIED TO WOUND BED AND COVERED WITH TEGADERM. WRAPPED WITH KERLEX AND TAPED INTO PLACE. PT DENIED PAIN WITH DRESSING CHANGES. TOLERATED WELL.
--- NOTE | 2021-04-30 18:12 | NUR ---
04/30/21: Palliative care nurse Dominique has met with pt. and discussed care as noted in chart. Pt. declining hospice services at this time and requesting rehab at SNF. Per pt. his goal is to regain strength and improve mobility. Cancer treatments discussed with pt. by Dominique in palliative care as well. Pt. is agreeable to holding off on treatments at this time. Provided updates to [facility]. Again requesting rehab with manager social to assist. Pt. could potentially transition to hospice in facility if his condition does not improve. [facility] reviewing pt. I have received one approval from facility but it is necessary for admin to review. Waiting for final decision. Other option is to contact patient's sister who states that she would be willing to travel here from [place] to assist as needed. She could potentially assist pt. with finances with goal of spend down to transition to a usp care facility such as [facility]. Hospice could be involved there as well. This will be our potential back-up plan at this time. Anticipate needs at time of discharge to include: placement at SNF or long-term care facility, manager social assistance, potentially family assistance with finances, transport to facility, negative COVID test ordered STAT once accepted, hospital F/U appt. with PCP within 5-7 days post discharge.
--- NOTE | 2021-04-30 19:31 | NUR ---
SHIFT SUMMARY: PT A/O X 3, PT ON BEDREST AT THIS TIME. SPEECH EVAL COMPLETED TODAY FOR EPISODES OF CHOKING AT MEAL TIME. PLAN IS FOR PT TO GO TO SNF SOON A BED IS AVAILABLE. PT CHANGED TO DNR STATUS. WOUND NOTED ON BOTTOM AND LEFT LEG.
--- NOTE | 2021-05-01 05:36 | NUR ---
Pt AAOx3, has STML, denies pain, SOB, or other discomforts. Pt had BM yesterday evening, pulse in LLE is weak but palpable. Dsgs C/D/I, pt turn q 2, has small pressure ulcer on coccyx. Mepilex CDI Plan: Tq2, monitor cirulation, SNF, meds crushed in a/s,
--- NOTE | 2021-05-01 15:51 | NUR ---
Attempted to see pt several times today. EMR reviewed, especially therapy & MD eval/PNs. Pt was working with thearpists or resting soundly each time I came by. Pal Care to remain available for support with goals of care.
--- NOTE | 2021-05-01 18:43 | NUR ---
alert and orintated, call light in reach, wounds cared for as directed and appropriate, rm air, saline locked, in contact with director of primary care who he states he wants to care for him, asked nurse in front of witness to give her his wallet with his credit card so she could pay his bills, she presented her drivers licens and met the pt's discription, called pt advocate to try to arrange for pw to make give her poa, will continue to encourage and assist as possible and appropriate, will review with noc nurse and treat and monitor until then
--- NOTE | 2021-05-02 06:00 | NUR ---
PATIENT IS ASLEEP LYING IN BED. VS STABLE, NO ACUTE CHANGES OVERNIGHT. TURNED AND REPOSITIONED PATIENT Q2 THROUGHT NIGHT. BED IN LOW POSITION AND CALL LIGTH WITHIN REACH.
[2021-05-02 08:08] LABS: BASOPHILS ABSOLUTE AUTO 0.01 K/mm3 (0.00-0.23); BASOPHILS PERCENT AUTO 0 % (0-2); EOSINOPHILS ABSOLUTE AUTO 0.07 K/mm3 (0.00-0.68); EOSINOPHILS PERCENT AUTO 1 % (0-6); Hematocrit 29.4 % (37.0-53.0); Hemoglobin 9.5 g/dL (13.5-17.5); IMMATURE GRAN ABSOLUTE AUTO 0.09 K/mm3 (0.00-0.10); IMMATURE GRAN PERCENT AUTO 1 % (0-1); LYMPHOCYTES PERCENT AUTO 8 % (21-46); MONOCYTES ABSOLUTE AUTO 1.11 K/mm3 (0.16-1.47); MONOCYTES PERCENT AUTO 12 % (4-13); Mean Corpuscular HGB 30.8 pg (26.0-34.0); Mean Corpuscular HGB Conc 32.3 g/dL (31.5-36.5); Mean Corpuscular Volume 96 fL (80-100); Mean Platelet Volume 11.3 fL (9.1-12.4); NEUTROPHILS ABSOLUTE AUTO 7.53 K/mm3 (1.96-9.15); NEUTROPHILS PERCENT AUTO 78 % (41-73); Platelet Count 167 K/mm3 (150-400); RDW Coefficient Variation 14.8 % (11.7-14.2); RDW Standard Deviation 50.9 fL (35.1-46.3); Red Blood Cell Count 3.08 M/mm3 (4.30-5.90); White Blood Cell Count 9.61 K/mm3 (4.00-11.30)
[2021-05-02 08:24] LABS: Albumin, Blood 1.7 g/dL (3.4-5.0); Anion Gap 6 mmol/L (6-16); Blood Urea Nitrogen 39 mg/dL (8-24); Bun/Creatinine Ratio 24.5 (12.0-20.0); CO2, Blood 26 mmol/L (21-32); Calcium, Blood 9.5 mg/dL (8.5-10.1); Chloride, Blood 108 mmol/L (98-108); Creatinine, Blood 1.59 mg/dL (0.60-1.20); Glomerular Filtration Rate 42 (60-); Glucose, Blood 160 mg/dL (70-99); Phosphorus, Blood 2.7 mg/dL (2.5-4.9); Potassium, Blood 3.6 mmol/L (3.5-5.5); Sodium, Blood 140 mmol/L (136-145)
--- NOTE | 2021-05-02 10:13 | NUR ---
chemistry account manager Marlene Young assisting with discharge planning yesterday in my absence. She has advised that [facility] has declined to accept pt. Pt. was originally under review by Regina for [facility] specifically. I have reached out to determine if Rajesh has also declined. Waiting for return call. I have also reached out to Director at [facility] Patti to determine if they might be able to assist pt. with spend down for assisted living placement. Patti is hopeful that they might be able to assist pt. She has agreed to review chart notes. Potential need for patient's sister to travel to [place] to assist with financial arrangements. I will wait to contact her today until I have heard back from both [facility] and [facility].
--- NOTE | 2021-05-02 13:43 | NUR ---
Met patient today, he is alert and oriented x's 4. He just finished working with therapy when I arrived to his room today. He is pleasant and cooperative. Noted a large non-stick dressing to Left faith; he states its a bandage from where he had skin cancer removed. He has requested his friend/CG to help him with financed. He has spoken to his friend Rajesh and states she has agreed to be his financial power of admitted attorneys to help him with bills, and work on the "spend down" needed to apply for medicare. She will be in this afternoon to do paperwork.
--- NOTE | 2021-05-02 17:56 | NUR ---
Discussed patient's care with Clinical Shellfish Checker Montana at [facility] this am. She is agreeable to potentially accepting pt. dependent upon progress with spend-down and securing long-term care plan. Amisha Giron also reviewing patient and assisting in answering financial questions. Patient's friend has obtained POA to assist with financial planning. Eun in palliative care and I met with pt. and POA to discuss D/C planning further. Explained the process of spend-down to medicaid as well as applying for medicaid. Requested that POA obtain financial information including list of assests and total income monthly. That information will help us to better understand what patient will quailfy for. Pt. is agreeable to rehabe facility with plan to possibly transition to long-term care facility if all works out financially. We briefly discussed hospice services again and he is not interested at this time. Plan to touch base with all invovled in care tomorrow to finalize plans and move forward.
--- NOTE | 2021-05-03 06:17 | NUR ---
SHIFT SUMMARY PT IS ASLEEP IN BED MOST OF THE SHIFT, NO S/S OF PAIN OR DISCOMFORT NOTED. RESPIRATIONS EVEN AND UNLABORED. PT HAS A CARTER CATHETER FOR URINE. PT IS INCONTINENT OF BOWEL. ADLS PROVIDED, SAFETY MEASURES IN PLACE.
--- NOTE | 2021-05-03 14:46 | NUR ---
Pt was accepted at [facility]. He appointed a POA Ashley to assist with bill paying. His sister requests we change his asphalt roller person to Emili, his niece and she will give the information to the pt's sisters.
--- NOTE | 2021-05-03 15:18 | NUR ---
Met. in bed resting , pt. reports doing much better today encouraged pt. and prayed for the pt.
[2021-05-03 16:28] LABS: SARS-Cov-2 (COVID-19) PCR, MMC NEGATIVE (NEGATIVE)
--- NOTE | 2021-05-03 17:18 | NUR ---
Assisted patient's POA Ashley with starting the Medicaid process for pt. Walked her through the website and completing application as a order entry representative for the pt. She is going to gather all of patient's financial info and get him signed up for Medicaid. She will also prepare for the potential need for spend-down. Patti with [facility] will continue to assist patient and Ashley with the process. They are also willing to review pt. for potential to accept if he decides that he is intested in assisted living. Montana Linares with [facility] has agreed to accept pt. with now that the Medicaid process is in place and pt. is fully prepared to move forward with long-term care placement if unable to improve enough to return home. Discharge paperwork faxed to facility and packet delivered to room. Transportation scheduled for 1700 with [facility] via [facility]. Paperwork filled out for insurance coverage of gurney transport. Nurse notified of D/C plan.
--- NOTE | 2021-05-03 17:23 | NUR ---
Assisted patient's POA Ashley with starting the Medicaid process for pt. Walked her through the website and completing application as a lead customer service representative for the pt. She is going to gather all of patient's financial info and get him signed up for Medicaid. She will also prepare for the potential need for spend-down. Patti with [facility] will continue to assist patient and Ashley with the process. They are also willing to review pt. for potential to accept if he decides that he is intested in assisted living. [place] Linares with [facility] has agreed to accept pt. with now that the Medicaid process is in place and pt. is fully prepared to move forward with long-term care placement if unable to improve enough to return home. Discharge paperwork faxed to facility and packet delivered to room. Transportation scheduled for 1700 with [facility] via [facility]. Paperwork filled out for insurance coverage of gurney transport. Nurse notified of D/C plan.
--- NOTE | 2021-05-03 17:55 | NUR ---
SHIFT SUMMARY PT RESTING QUIETLY AT START OF SHIFT AND THRU OUT MOST OF THE DAY. WAKES EASILY FOR CARE. ABLE TO WORK WITH PT/OT TODAY IN BED. INCONTINENT OF BOWEL. SACRAL WOUND WITH MEPILEX IN PLACE. CARTER CATH TO GRAVITY, DRAINING CL YELLOW. DRSG TO L FOOT; C/D/I. PT DENIED PAIN AT REST, BUT DID NOT ATTEMPT TO PUT WT ON IT. R SIDE DEFICIT R/T NEW CVA. HX OF SKIN CANCER TO L SIDE OF HEAD. DECLINED FURTHER TX OF IT. WOUND CLEANED AND NEW PETROLEUM DRSG PLACED THIS AFTERNOON. PT TO BE TX'D TO FOR REHAB; PT UNABLE TO GO HOME BY HIMSELF. PT IS WEAK AND FRAIL AND DOES NOT WANT TO EAT. [facility] HOS[facility]ICE DISCUSSED WITH PT AND POA. REPORT CALLED TO RH AND TX HERE TO PICK PT UP.
== END 2021-05-03 18:13 | DRG 252 ==
LOC: ER 12:59 → MEDS 19:21 → SURS 04-22 14:32 → PCU 04-26 14:56 → MEDS 04-28 11:48
PROVIDERS: Family Medicine; Internal Medicine; Physician Assistant; Radiology Diagnostic Radiology; ADMIT Internal Medicine Endocrinology, Diabetes & Metabolism
PROC: 047L3DZ Dilation of Left Femoral Artery with Intraluminal Device, Percutaneous Approach (ICD-10-PCS; principal; 2021-04-22)
PROC: 047N3DZ Dilation of Left Popliteal Artery with Intraluminal Device, Percutaneous Approach (ICD-10-PCS; 2021-04-22)
PROC: 047Q3ZZ Dilation of Left Anterior Tibial Artery, Percutaneous Approach (ICD-10-PCS; 2021-04-22)
PROC: 047U3ZZ Dilation of Left Peroneal Artery, Percutaneous Approach (ICD-10-PCS; 2021-04-22)
PROC: 047S3ZZ Dilation of Left Posterior Tibial Artery, Percutaneous Approach (ICD-10-PCS; 2021-04-22)
PROC: B41G1ZZ Fluoroscopy of Left Lower Extremity Arteries using Low Osmolar Contrast (ICD-10-PCS; 2021-04-22)
DX: E11.51 Type 2 diabetes mellitus with diabetic peripheral angiopathy without gangrene (principal); I63.89 Other cerebral infarction; E43 Unspecified severe protein-calorie malnutrition; Z66 Do not resuscitate; N17.9 Acute kidney failure, unspecified; N13.39 Other hydronephrosis; N13.8 Other obstructive and reflux uropathy; K86.1 Other chronic pancreatitis; G81.91 Hemiplegia, unspecified affecting right dominant side; R64 Cachexia; Z20.822 Contact with and (suspected) exposure to COVID-19; I70.222 Atherosclerosis of native arteries of extremities with rest pain, left leg; R29.810 Facial weakness; R62.7 Adult failure to thrive; R47.81 Slurred speech; E78.5 Hyperlipidemia, unspecified; E11.22 Type 2 diabetes mellitus with diabetic chronic kidney disease; I12.9 Hypertensive chronic kidney disease with stage 1 through stage 4 chronic kidney disease, or unspecified chronic kidney disease; N18.30 Chronic kidney disease, stage 3 unspecified; R33.8 Other retention of urine; Z68.22 Body mass index [BMI] 22.0-22.9, adult; I25.10 Atherosclerotic heart disease of native coronary artery without angina pectoris; D63.1 Anemia in chronic kidney disease; C76.0 Malignant neoplasm of head, face and neck; Z91.14 Patient's other noncompliance with medication regimen; E04.2 Nontoxic multinodular goiter; N40.1 Benign prostatic hyperplasia with lower urinary tract symptoms; R19.7 Diarrhea, unspecified; Z88.8 Allergy status to other drugs, medicaments and biological substances; Z79.899 Other long term (current) drug therapy; Z92.21 Personal history of antineoplastic chemotherapy; Z92.3 Personal history of irradiation; Z79.02 Long term (current) use of antithrombotics/antiplatelets; Z79.01 Long term (current) use of anticoagulants; Z98.890 Other specified postprocedural states
CPT/HCPCS: 36415; 37226; 37228; 37232; 51701; 51703; 70450; 70551; 75716; 75774; 76770; 76937; 80048; 80053; 80069; 81001; 81003; 82947; 83605; 85014; 85018; 85025; 85027; 85049; 85347; 85520; 85610; 85730; 92526; 92610; 93306; 93880; 93926; 96365; 96366; 96376; 97110; 97112; 97162; 97166; 97530; 97535; 99152; 99153; 99284-25; A9270; C1725; C1760; C1769; C1874; C1887; C1894; J0360; J1170; J1644; J2250; J2997; J3010; J3480; J7030; J7050; J7120; Q9967; U0004